=== PATIENT | female | born 1990 | race Hispanic/Latino ===

== ENCOUNTER 2022-12-15 07:46 | Day surgery (SDC) | payer OTHER ==
[2022-12-14 14:54] VITALS: BMI 26.2
[2022-12-15] MEDS ORDERED: PROPOFOL 20 ML ONE ×2 (08:57→08:59)
[2022-12-15] MEDS ORDERED: Ondansetron PF 4 MG/2 ML Vial ONE (08:58)
[2022-12-15] MEDS ORDERED: Dexamethasone 4 mg/ml Vial ONE (08:58)
[2022-12-15] MEDS ORDERED: Lidocaine 2% PF 5 ML VIAL ONE (08:59)
[2022-12-15] MEDS ORDERED: Succinylcholine 200 MG/10 ml SYRINGE FS ONE (08:59)
[2022-12-15 09:58] LABS: Hematocrit 33.9 % (34.9-44.5); Hemoglobin 11.7 g/dL (12.0-15.5); Red Blood Cell (RBC) Count 3.55 10x6/uL (3.90-5.03); White Blood Cell (WBC) Count 6.7 10x3/uL (3.5-10.5)
[2022-12-15 09:59] LABS: Mean Corpuscular HGB CONC 34.5 g/dL (32.0-36.0); Mean Corpuscular Volume 95.5 fl (81.6-98.3); Mean Platelet Volume 9.5 fl (7.4-10.4); Platelet Count 186 10x3/uL (130-400); RBC Distribution Width 12.7 % (11.5-14.5)
[2022-12-15] MEDS ORDERED: CEFAZOLIN 2 GM VIAL ONE (09:59)
[2022-12-15] MEDS ORDERED: metroNIDAZOLE 500 MG/100 ML BAG ONE (10:08)
[2022-12-15] MEDS ORDERED: Acetaminophen 500 MG TAB ONE (10:12)
[2022-12-15] MEDS ORDERED: PROPOFOL 40 ML ONE (10:26)
[2022-12-15 11:33] LABS: Amphetamine Detected (NotDetected); Barbiturates Screen Not Detected (NotDetected); Benzodiazepine Screen Not Detected (NotDetected); Cocaine Metabolite Screen Not Detected (NotDetected); Methadone Not Detected (NotDetected); Methamphetamine Detected (NotDetected); Opiate Screen Not Detected (NotDetected); Oxycodone Screen Not Detected (NotDetected); Phencyclidine (PCP) Not Detected (NotDetected); THC/Cannabinoid Screen Not Detected (NotDetected); Tricyclic Screen Not Detected (NotDetected)
== END 2022-12-15 12:50 | disposition home or self-care (01) ==
LOC: CSHSDC 07:46
PROVIDERS: ATTEND Student in an Organized Health Care Education/Training Program
PROC: 0UVC0ZZ Restriction of Cervix, Open Approach (ICD-10-PCS; principal; 2022-12-15)
DX: O34.32 Maternal care for cervical incompetence, second trimester (principal); Z3A.14 14 weeks gestation of pregnancy
CPT/HCPCS: 36415; 80306; 85027; 86850; 86900; 86901; J1100; J2001; J2405; J2704

== ENCOUNTER 2023-05-21 12:38 | Day surgery (SDC) | payer OTHER ==
[2023-05-21 13:06] VITALS: BMI 31.7
[2023-05-21] MEDS ORDERED: hydrALAZINE 20 MG/ML VIAL SLOW IVP PRN (14:02)
== END 2023-05-21 16:24 | disposition home or self-care (01) ==
LOC: CSHLD/OP 12:38
PROVIDERS: ATTEND Student in an Organized Health Care Education/Training Program
DX: O99.891 Other specified diseases and conditions complicating pregnancy (principal); R10.9 Unspecified abdominal pain; Z3A.36 36 weeks gestation of pregnancy